=== PATIENT | male | born 1990 | race Hispanic/Latino ===

== ENCOUNTER 2022-05-27 14:37 | Emergency (ER) | payer SELFPAY ==
[~2022-05-27] VITALS: Ht 165.1 cm; Wt 79.8 kg
[2022-05-27] MEDS ORDERED: NS 1,600 ML IV ONE (20:45)
[2022-05-27] MEDS ORDERED: LIDOCAINE 5% (LIDODERM) PATCH TD ONE (20:45)
[2022-05-27] MEDS ORDERED: KETOROLAC 30 MG/ML 1ML VIAL IM ONE (20:45)
[2022-05-27] MEDS ORDERED: ACETAMINOPHEN 500 MG TAB PO ONE (20:45)
[2022-05-27] MEDS ORDERED: LIDO5DIS41 TOP (22:22)
[2022-05-27] MEDS ORDERED: CYCL5TAB PO (22:22)
[2022-05-27] MEDS ORDERED: IBUP80TA PO (22:22)
[2022-05-27 22:36] VITALS: BP 137/90
== END 2022-05-27 22:45 | disposition home or self-care (01) ==
LOC: M ED 14:37
DX: S39.012A Strain of muscle, fascia and tendon of lower back, initial encounter (principal); M51.36 Other intervertebral disc degeneration, lumbar region; M54.17 Radiculopathy, lumbosacral region; M54.41 Lumbago with sciatica, right side; X50.0XXA Overexertion from strenuous movement or load, initial encounter; Y93.H1 Activity, digging, shoveling and raking; Z88.8 Allergy status to other drugs, medicaments and biological substances; Z79.899 Other long term (current) drug therapy
CPT/HCPCS: 72131; 96372; 99283; J1885